=== PATIENT | male | born 1935 | race Caucasian/White ===

== ENCOUNTER 2019-05-10 19:31 | Inpatient (IN) | payer OTHER ==
[~2019-05-10] VITALS: Ht 182.9 cm; Wt 81.6 kg
[2019-05-10 19:34] VITALS: Ht 182.9 cm; Wt 81.6 kg
--- NOTE | 2019-05-10 19:35 | NUR ---
MD BEE AT BEDSIDE FOR MSE
--- NOTE | 2019-05-10 19:41 | NUR ---
PT PRESENTS TO ED WITH [facility] FROM [facility] FOR C/O 2 EPISODES OF CHEST PAIN TODAY. PER STAFF HE WAS WALKING BOTH TIMES WHEN IT OCCURED. PT APPERED TO BE FLUSHED HOWEVER NOT DIAPHORETIC. PER STAFF AT [address] PT HAS SEVERE MEMORY ISSUES SO THAT IF HE WAS HAVING PAIN THAT HE WOULD FORGET A FEW MINUTES LATER. PT PRESENTS TO ED WIHT FULL AND CLEAR SPEECH. PT SKIN WNL. PT RESP E/U. WHEN ASKED IF PT HAS CHEST PAIN HE STATES 'NOT ENOUGH TO BOTHER ME'. PT CONNECTED TO FULL CM AND PULSE OX MONITORS. EKG ALREADY PERFORMED. PT IS [facility] 15, AXO X1. PT ONLY AWARE OF NAME, UNKNOWN LOCATION, SITUATION OR DATE. NAD AT THIS TIME. FAMILY AWARE OF PT LOCATION PER [facility]
[2019-05-10 20:31] LABS: BASOPHIL % 0.8 % (0-2); PLATELET COUNT 225 x10^3mcL (130-400); RED CELL DISTRIBUTION WIDTH 13.6 % (11.5-14.5)
[2019-05-10 20:38] LABS: CALCIUM 8.4 mg/dL (8.5-10.1); CARBON DIOXIDE 29.3 mmol/L (21-32); CHLORIDE SERUM 105 mmol/L (98-107); CREATININE SERUM 1.9 mg/dL (0.7-1.3); GLUCOSE SERUM 150 mg/dL (74-106); POTASSIUM SERUM 4.5 mmol/L (3.5-5.1); SODIUM SERUM 141 mmol/L (136-145)
[2019-05-10 20:42] LABS: ALBUMIN 3.3 g/dL (3.4-5.0); ALKALINE PHOSPHATASE 83 U/L (46-116); ALT/SGPT 25 U/L (16-63); AST/SGOT 15 U/L (15-37); BILIRUBIN TOTAL 0.29 mg/dL (0.20-1.00); LIPASE 230 IU/L (73-393); TOTAL PROTEIN, SERUM 7.1 g/dL (6.4-8.2)
--- NOTE | 2019-05-10 20:42 | NUR ---
PT STILL DENIES ANY PAIN AT THIS TIME. FAMILY AT BEDSIDE NAD
[2019-05-10] MEDS ORDERED: GOOD SENSE ASPI81 M3 PO (22:05)
[2019-05-10] MEDS ORDERED: LIPI10 PO (22:05)
[2019-05-10] MEDS ORDERED: LOT20 PO (22:06)
[2019-05-10] MEDS ORDERED: JANUVIA100 M1 PO (22:06)
[2019-05-10] MEDS ORDERED: NAMZARIC1 ECC PO (22:07)
[2019-05-10] MEDS ORDERED: SYNTHROID0.112 MG PO (22:07)
[2019-05-10] MEDS ORDERED: NEPHRO-VITE VITA1 EA PO (22:08)
[2019-05-10] MEDS ORDERED: ALPRAZOLAM0.25 MG PO (22:08)
[2019-05-10] MEDS ORDERED: BETIMOL5 M1 OP (22:08)
--- NOTE | 2019-05-10 22:24 | NUR ---
PT APPEARS SLIGHTLY AGITATED. PT SITTING UP IN BED. PT CURSING SAYING HE DOES NOT WANT TO STAY HERE. DAUGHTER AT BEDSIDE. SITTER REQUESTED FOR PT ADMISSION
--- NOTE | 2019-05-10 23:24 | NUR ---
REPORT GIVEN TO REFUGIO GROSSMAN. ALL QUESTIONS AND CONCERNS ADDRESSED AT THIS TIME
--- NOTE | 2019-05-10 23:46 | NUR ---
RECEIVED PT VIA [id number] FROM E/D, ACCOMPANIED BY RN, TRANSPORTER, AND PT'S DAUGHTER, JOSE DAVID VALDIVIA. PT A/A/O X 1 (PERSON ONLY), FORGETFUL, CALM, COOPERATIVE TO CARE AT THIS TIME. AMBULATORY, NO GAIT OR BALANCE IMPAIRMENT NOTED WHEN WALKING FROM GURNEY TO BED; FALL RISK PROTOCOL IN PLACE 2/2 EPISODES OF CONFUSION. ON TELE # 17, SB, HR 55, DENIES CHEST PAIN OR DISCOMFORT AT THIS TIME. SCD BY BEDSIDE. NO ACUTE RESPIRATORY DISTRESS NOTED. ABD SOFT, ROUND, NON-TENDER, NORMOACTIVE BOWEL SOUNDS X 4 QUADS, LAST BM UNKNOWN; WEARS FULL UPPER AND LOWER DENTURES (W/ PT). IV SITE LAC 20G, CDI. ORIENTED PT TO ROOM, BED CONTROLS, CALL LIGHT SYSTEM. SIDE RAILS UP X 2, BED IN LOW POSITION. WILL ENDORSE TO REFUGIO EWING RN.
[2019-05-11 00:44] VITALS: BP 116/68
--- NOTE | 2019-05-11 01:55 | NUR ---
PT CALM AND APPEARS TO BE SLEEPING COMFORTABLY. SITTER AT BEDSIDE.
--- NOTE | 2019-05-11 05:37 | NUR ---
PT SLEPT FAIRLY. HE WAS CALM THROUGHOUT THE NIGHT ALTHOUGH HE REMAINS CONFUSED. HE HAD NO C/O CHEST PAIN OR PALPITATIONS. IV HL TO [facility] INTACT. ALL NEEDS ATTENDED TO. SITTER AT BEDSIDE.
[2019-05-11 06:49] VITALS: BP 154/65
--- NOTE | 2019-05-11 07:17 | NUR ---
REPORT TAKEN FROM P[employer]ER NURSE AT THE BEDSIDE, PATIENT AWAKE AND ALERT, ORIENTED TO SELF, SITTER AT THE BEDSIDE, NO ACUTE DISTRESS REPORTED OR OBSERVED. WILL CONTINUE TO MONITOR.
[2019-05-11 10:11] LABS: microscopic required? NO
--- NOTE | 2019-05-11 10:27 | NUR ---
DR. ROTH AND RESIDENT TEAM MET WITH THE PATIENT AT THE BEDSIDE, THEY ADVISED DISCHARGE. DR. ROTH SAYS HE SPOKE WITH CASE MANAGEMENT TO ARRANGE TRANSPORT BACK TO [facility]
[2019-05-11 10:31] LABS: UA SPECIFIC GRAVITY 1.015 (1.005-1.035); urine erythrocyte NEGATIVE (NEGATIVE)
[2019-05-11 12:49] VITALS: BP 154/65
--- NOTE | 2019-05-11 13:11 | NUR ---
I SPOKE TO JOSE DAVID, THE PATIENTS DAUGHTER WHO IS ABLE TO PICK THE PATIENT UP AT 1400. I ALSO SPOKE TO TURNER, CASH VAN SALESPERSON AT [facility] TO INFORM THE PATIENT IS DISCHARGED AND WILL BE BROUGHT BACK TO [facility] BY HIS DAUGHTER. BOTH JOSE DAVID AND TURNER CONFIRMED UNDERSTANDING OF PLAN.
[2019-05-11 13:59] VITALS: BP 148/58
--- NOTE | 2019-05-11 14:23 | NUR ---
PATIENT DISCHARGED AT THIS TIME IN THE CARE OF HIS DAUGHTER, IV DC'D FROM LEFT AC WITH CATH INTACT, DRESSED WITH GAUZE AND COBAN, TAKING DOWN TO DISCHARGE BY BOILER TESTER.
== END 2019-05-11 14:23 | disposition home or self-care (01) | DRG 308 ==
LOC: ED 19:31 → DU 22:23
PROVIDERS: Emergency Medicine; ADMIT General Practice
DX: R00.1 Bradycardia, unspecified (principal); N17.0 Acute kidney failure with tubular necrosis; E11.65 Type 2 diabetes mellitus with hyperglycemia; E11.22 Type 2 diabetes mellitus with diabetic chronic kidney disease; I12.9 Hypertensive chronic kidney disease with stage 1 through stage 4 chronic kidney disease, or unspecified chronic kidney disease; N18.9 Chronic kidney disease, unspecified; E03.9 Hypothyroidism, unspecified; E78.5 Hyperlipidemia, unspecified; G30.9 Alzheimer's disease, unspecified; F02.80 Dementia in other diseases classified elsewhere, unspecified severity, without behavioral disturbance, psychotic disturbance, mood disturbance, and anxiety; Z66 Do not resuscitate; Z79.82 Long term (current) use of aspirin; Z68.24 Body mass index [BMI] 24.0-24.9, adult; Z79.84 Long term (current) use of oral hypoglycemic drugs
CPT/HCPCS: 82962; G0378; Q0092